=== PATIENT | female | born 1995 | race American Indian/Alaskan Native ===

== ENCOUNTER 2016-11-30 20:27 | Emergency (ER) | payer OTHER ==
[2016-11-30] MEDS ORDERED: MOTRIN PO ONE (20:40)
[2016-11-30 20:42] VITALS: BP 106/55
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
== END 2016-11-30 22:57 | disposition left against medical advice (07) ==
LOC: ED 20:27
DX: S29.012A Strain of muscle and tendon of back wall of thorax, initial encounter (principal); V89.2XXA Person injured in unspecified motor-vehicle accident, traffic, initial encounter; Y93.89 Activity, other specified; Y92.411 Interstate highway as the place of occurrence of the external cause; Y99.8 Other external cause status
CPT/HCPCS: 71020; 72072; 99283